=== PATIENT | male | born 1965 | race Caucasian/White ===

== ENCOUNTER → 2016-04-26 | Outpatient (CLI) | payer OTHER ==
--- NOTE | 2016-04-26 09:15 | DIAGNOSTIC IMAGING REPORT ---
CHEST 2 VIEWS ROUTINE CLINICAL HISTORY: Contact with asbestos. Cough. COMPARISON STUDY: No previous studies for comparison. FINDINGS: Lung volumes are normal. Lungs are clear. There is no pneumothorax or pleural effusion. Cardiac size is normal. Mediastinal contours are normal. IMPRESSION: No acute cardiopulmonary findings. Electronically signed by: Wilbert Martini M.D. 04/26/2016 9:13 AM
== END | disposition home or self-care (01) ==
LOC: C.RAD1850 08:46
PROVIDERS: ATTEND Family Medicine
DX: Z77.090 Contact with and (suspected) exposure to asbestos (principal)